=== PATIENT | male | born 1995 | race Caucasian/White ===

== ENCOUNTER 2017-07-30 15:16 | Inpatient (IN) | payer OTHER ==
[2017-07-30 16:26] LABS: HEMATOCRIT 45.5 % (42.0-52.0); HEMOGLOBIN 15.1 g/dl (13.5-17.5); MEAN CORPUSCULAR HEMOGLOBIN 27.1 pg (27.0-33.0); MEAN CORPUSCULAR HGB CONC 33.2 g/dl (32.0-36.5); MEAN CORPUSCULAR VOLUME 81.7 fl (80.0-96.0); PLATELET COUNT, AUTOMATED 244 10^3/uL (150-450); RED BLOOD COUNT 5.57 10^6/uL (4.30-6.10); RED CELL DISTRIBUTION WIDTH 13.4 % (11.5-14.5); WHITE BLOOD COUNT 5.3 10^3/uL (4.0-10.0)
[2017-07-30 16:42] LABS: AMPHETAMINES LEVEL URINE NEGATIVE (NEGATIVE); BARBITURATES URINE NEGATIVE (NEGATIVE); BENZODIAZEPINES URINE NEGATIVE (NEGATIVE); CANNABINOIDS URINE NEGATIVE (NEGATIVE); COCAINE METABOLITE URINE NEGATIVE (NEGATIVE); METHADONE URINE NEGATIVE (NEGATIVE); OPIATES URINE NEGATIVE (NEGATIVE); PHENCYCLIDINE URINE NEGATIVE (NEGATIVE)
[2017-07-30 17:00] LABS: ACETAMINOPHEN LEVEL < 2.0 UG/ML (10.0-30.0); ALBUMIN 4.1 GM/DL (3.2-5.2); ALBUMIN/GLOBULIN RATIO 1.24 (1.00-1.93); ALKALINE PHOSPHATASE 102 U/L (45-117); ALT/SGPT 32 U/L (12-78); ANION GAP 5 MEQ/L (8-16); AST/SGOT 21 U/L (7-37); BILIRUBIN,DIRECT 0.1 MG/DL (0.0-0.2); BILIRUBIN,TOTAL 0.4 MG/DL (0.2-1.0); BLOOD UREA NITROGEN 15 MG/DL (7-18); CALCIUM LEVEL 8.9 MG/DL (8.5-10.1); CARBON DIOXIDE LEVEL 30 MEQ/L (21-32); CHLORIDE LEVEL 107 MEQ/L (98-107); CREATININE FOR GFR 1.13 MG/DL (0.70-1.30); GLUCOSE, FASTING 83 MG/DL (70-100); POTASSIUM SERUM 4.2 MEQ/L (3.5-5.1); SALICYLATE LEVEL < 1.7 MG/DL (5.0-30.0); SODIUM LEVEL 142 MEQ/L (136-145); TOTAL PROTEIN 7.4 GM/DL (6.4-8.2)
[2017-07-30 17:01] LABS: ETHYL ALCOHOL (ETHANOL) < 0.003 % (0.000-0.010)
[2017-07-30] MEDS: NICOTINE 21MG/24HR 1 EA TRANSDERMAL TD (17:42)
[2017-07-30] MEDS ORDERED: traZODone 50 MG TAB PO (19:15)
[2017-07-30] MEDS ORDERED: ACETAMINOPHEN TAB 650MG DOSE (2X325MG) PO (19:15)
[2017-07-30] MEDS ORDERED: MOM 30ML SUSPENSION UDC PO (19:15)
[2017-07-30] MEDS ORDERED: MAALOX 30 ML SUSP *UDC PO (19:15)
[2017-07-31] MEDS: PARoxetine 12.5 MG **CR** TAB PO (11:39)
[2017-07-31] MEDS: QUEtiapine FUMARATE 200 MG TAB PO ×2 (11:39→20:38)
[2017-07-31] MEDS: hydrOXYzine 50 MG TAB PO (17:07)
[2017-07-31] MEDS: MIRTAZAPINE 15 MG TAB PO (20:38)
[2017-08-01] MEDS: QUEtiapine FUMARATE 200 MG TAB PO (09:29)
[2017-08-01] MEDS: PARoxetine 12.5 MG **CR** TAB PO (09:29)
[2017-08-01] MEDS: hydrOXYzine 50 MG TAB PO (17:35)
[2017-08-01] MEDS: MIRTAZAPINE 15 MG TAB PO (21:00)
[2017-08-01] MEDS: QUEtiapine FUMARATE 100 MG TAB PO (21:00)
[2017-08-02] MEDS: QUEtiapine FUMARATE 100 MG TAB PO ×2 (08:47→21:18)
[2017-08-02] MEDS: PARoxetine 12.5 MG **CR** TAB PO (08:47)
[2017-08-02] MEDS: hydrOXYzine 50 MG TAB PO ×2 (08:47→14:59)
[2017-08-02] MEDS: traZODone 50 MG TAB PO (20:20)
[2017-08-02] MEDS: PRAZOSIN 1 MG CAP PO (21:18)
[2017-08-02] MEDS: MIRTAZAPINE 15 MG TAB PO (21:19)
[2017-08-03] MEDS: PARoxetine 12.5 MG **CR** TAB PO (08:12)
[2017-08-03] MEDS: QUEtiapine FUMARATE 100 MG TAB PO (08:12)
[2017-08-03] MEDS: hydrOXYzine 50 MG TAB PO (08:12)
[2017-08-03] MEDS: MIRTAZAPINE 15 MG TAB PO (20:26)
[2017-08-03] MEDS: traZODone 50 MG TAB PO (20:26)
[2017-08-03] MEDS: QUEtiapine FUMARATE **XR** 200MG TABLET PO (21:12)
[2017-08-03] MEDS: PRAZOSIN 1 MG CAP PO (21:14)
[2017-08-04] MEDS: PARoxetine 12.5 MG **CR** TAB PO (08:00)
[2017-08-04] MEDS: hydrOXYzine 50 MG TAB PO (12:02)
[2017-08-04] MEDS: MIRTAZAPINE 15 MG TAB PO (20:36)
[2017-08-04] MEDS: traZODone 50 MG TAB PO (20:36)
[2017-08-04] MEDS: PRAZOSIN 1 MG CAP PO (20:36)
[2017-08-04] MEDS: QUEtiapine FUMARATE **XR** 200MG TABLET PO (21:25)
[2017-08-05] MEDS: PARoxetine 12.5 MG **CR** TAB PO (08:33)
== END 2017-08-05 12:15 | disposition home or self-care (01) | DRG 881 ==
LOC: M ED 15:16 → M ED INP 19:06 → M PSY 21:12
DX: F43.21 Adjustment disorder with depressed mood (principal); F14.10 Cocaine abuse, uncomplicated; F41.1 Generalized anxiety disorder; F60.2 Antisocial personality disorder; F10.10 Alcohol abuse, uncomplicated; F17.200 Nicotine dependence, unspecified, uncomplicated; F60.3 Borderline personality disorder; F19.14 Other psychoactive substance abuse with psychoactive substance-induced mood disorder